=== PATIENT | female | born 1925 | race Caucasian/White ===

== ENCOUNTER 2016-11-21 13:05 | Inpatient (IN) | payer MEDICARE, MEDICAID ==
[~2016-11-21] VITALS: Ht 160 cm; Wt 54.4 kg
[2016-11-21 15:31] LABS: *BILIRUBIN,URIN NEGATIVE (NEGATIVE); *BLOOD, URINE 1+ (NEGATIVE); *CLARITY,URINE CLOUDY (CLEAR); *COLOR,URINE YELLOW (YELLOW); *KETONES,URINE NEGATIVE (NEGATIVE); *PROTEIN,URINE 1+ (NEGATIVE); *UROBILINOGEN,URINE 0.2 E.U./dl (NORMAL); LEUKOCYTE ESTERASE ,URINE 3+ (NEGATIVE); NITRITE, URINE NEGATIVE (NEGATIVE); PH,URINE 7.5 (5.0-8.0); UGLUCOSE NEGATIVE (NEGATIVE)
[2016-11-21 15:39] LABS: BACTERIA,URINE MANY /HPF (NONE SEEN); SQUAMOUS EPITHELIAL CELL,UR FEW /HPF (NONE SEEN); WBC,URINE TNTC /HPF (0-3)
[2016-11-21] MEDS ORDERED: CEFTRIAXONE 1 G in IV DEXTROSE 5% 50 ML IV ONE (15:45)
--- NOTE | 2016-11-21 16:00 | NUR ---
hospital sandwich provided per pt request.
[2016-11-21] MEDS ORDERED: CEFTRIAXONE 1 G VIAL ONE (16:01)
--- NOTE | 2016-11-21 16:34 | NUR ---
pt transfered to floor in stable condition, the pt daughter was at bedside the whole er stay.pt uses walker to ambulate, pt is a fall risk.
[2016-11-21 16:45] VITALS: BP 134/71
--- NOTE | 2016-11-21 17:57 | NUR ---
ADMISSION PROTOCOL FOLLOWED, PT ORIENTED TO ROOM AND WAS EDUCATED ON USING CALL LIGHT TO USE RESTROOM, PT VERBALIZED UNDERSTANDING. PT WAS AMBULATED TO BATHROOM BUT TO MUCH PAIN AND UNSTEADY, BEDSIDE COMMODE WAS PLACED IN ROOM. CALLED FOR ADMISSION ORDERS, NO RETURN PHONE CALL AT THIS TIME, WILL TRY AGAIN.
[2016-11-21] MEDS ORDERED: ONDANSETRON HCL 4 MG TABLET PO PRN (18:45)
[2016-11-21] MEDS ORDERED: CEFTRIAXONE 1 G VIAL IV SCH (19:00)
[2016-11-21] MEDS: IV NS 1000 ML 1,000 ML IV PRN (20:05)
[2016-11-21 20:23] VITALS: BP_SYST 124; BP_SYST 134; BP_DIAS 53
[2016-11-21] MEDS: ACETAMINOPHEN 325 MG TABLET PO PRN (22:15)
[2016-11-21] MEDS: ZOLPIDEM 5 MG TABLET PO PRN (22:34)
[2016-11-22 04:41] VITALS: BP 119/63
--- NOTE | 2016-11-22 06:14 | NUR ---
PT SLEPT INTERMITTENTLY, IN NO ACUTE DISTRESS. PT IS CONFUSED, REPEATEDLY TRIES TO GET OUT OF BED WITHOUT ASKING FOR ASSISTANCE. CONSTANT EXPLANATION TO PATIENT REGARDING FALL RISK, SAFETY MEASURES AND TO ASK FOR ASSISTANCE WHEN NEEDED. PATIENT NEEDS CONSTANT REINFORCEMENT/REMINDERS. ASSISTED PATIENT WITH TOILETING NEEDS, KEPT CLEAN/DRY. IVF RUNNING, NO INFILTRATION NOTED. CALL LIGHT WITHIN REACH, BED ALARM ON, FREQUENT VISUAL CHECKS. WILL CONTINUE TO MONITOR.
[2016-11-22] MEDS ORDERED: Z GUARD REMEDY PASTE 57 GM TUBE TOP PRN (06:45)
[2016-11-22 08:15] LABS: BASOPHILS % (AUTO) 0.3 % (0.0-2.0); EOSINOPHILS # (AUTO) 0.2 K/uL (0.0-0.7); EOSINOPHILS % (AUTO) 2.8 % (0.0-7.0); HEMATOCRIT 32.4 % (37-47); HEMOGLOBIN 10.1 G/DL (12.0-16.0); LYMPHOCYTES # (AUTO) 1.3 K/UL (0.8-4.8); LYMPHOCYTES % (AUTO) 17.1 % (20.5-51.5); MEAN CORPUSCULAR HEMOGLOBIN 23.1 UUG (27.0-31.0); MEAN CORPUSCULAR HGB CONC 31 g/dL (32.0-37.0); MEAN CORPUSCULAR VOLUME 74.4 FL (81.0-99.0); MONOCYTES # (AUTO) 0.9 K/UL (0.1-1.30); MONOCYTES % (AUTO) 11.9 % (0.0-11.0); NEUTROPHILS # (AUTO) 5.2 K/UL (1.8-8.9); NEUTROPHILS % (AUTO) 67.9 % (38.5-71.5); PLATELET COUNT (AUTO) 248 K/UL (150-450); RED BLOOD CELL COUNT(AUTO) 4.35 MIL/UL (4.2-5.4); WHITE BLOOD COUNT (AUTO) 7.7 K/UL (4.0-11.2)
[2016-11-22 08:23] LABS: ALANINE AMINOTRANSFERASE 18 U/L (14-59); ALKALINE PHOSPHATASE 89 U/L (50-136); ASPARTATE AMINOTRANSFERASE 17 U/L (15-37); BILIRUBIN,TOTAL 0.3 mg/dL (0.2-1.0); CARBON DIOXIDE 29 mmol/L (21-32); CHLORIDE 106 mmol/L (98-107); CREATININE 0.8 mg/dL (0.6-1.3); GLUCOSE 92 mg/dL (74-106); PHOSPHOROUS 3.1 mg/dL (2.5-4.9); POTASSIUM 4.2 mmol/L (3.5-5.1); TOTAL PROTEIN, SERUM 6.7 g/dL (6.4-8.2); UREA NITROGEN, BLOOD 17 mg/dL (7-18)
[2016-11-22 10:34] LABS: EOSINOPHILS % (MANUAL) 3 % (0-8); LYMPHOCYTES % (MANUAL) 19 % (20-40); MONOCYTES % (MANUAL) 13 % (2-10); NEUTROPHILS % (MANUAL) 65 % (42-75)
[2016-11-22] MEDS: ACETAMINOPHEN 325 MG TABLET PO PRN (10:55)
[2016-11-22 11:43] VITALS: BP 134/63
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
[2016-11-22 16:03] VITALS: BP 115/54
[2016-11-22] MEDS ORDERED: QUETIAPINE FUMARATE 25 MG TABLET PO PRN ×2 (17:00→20:00)
[2016-11-22] MEDS: CEFTRIAXONE 1 G in IV DEXTROSE 5% 50 ML IV SCH (18:12)
[2016-11-22 19:00] VITALS: BP 122/92
--- NOTE | 2016-11-22 19:40 | NUR ---
PT RECEIVED IN BED, AWAKE. A/OX1. V/S STABLE. NO ACUTE DISTRESS NOTED. NO COMPLAINTS OF PAIN AT THIS TIME. REORIENTED PATIENT TO TIME AND PLACE. SAFETY MEASURES IMPLEMENTED. CALL LIGHT WITHIN REACH. WILL CONTINUE TO MONITOR.
[2016-11-22] MEDS: QUETIAPINE FUMARATE 25 MG TABLET PO SCH (20:38)
--- NOTE | 2016-11-23 05:57 | NUR ---
END OF SHIFT NOTES. PT SLEPT WELL THROUGHOUT SHIFT. V/S STABLE. NO ACUTE DISTRESS NOTED. NO COMPLAINT OF PAIN. IVF INFUSING. NEEDS ATTENDED. SAFETY MAINTAINED. CALL LIGHT WITHIN REACH.
[2016-11-23 06:26] VITALS: BP 141/65
[2016-11-23 06:58] LABS: ALANINE AMINOTRANSFERASE 20 U/L (14-59); ALKALINE PHOSPHATASE 84 U/L (50-136); ASPARTATE AMINOTRANSFERASE 18 U/L (15-37); BILIRUBIN,TOTAL 0.2 mg/dL (0.2-1.0); CARBON DIOXIDE 27 mmol/L (21-32); CHLORIDE 107 mmol/L (98-107); CREATININE 0.8 mg/dL (0.6-1.3); GLUCOSE 94 mg/dL (74-106); MAGNESIUM 2.1 mg/dL (1.8-2.4); PHOSPHOROUS 3.6 mg/dL (2.5-4.9); POTASSIUM 4.1 mmol/L (3.5-5.1); TOTAL PROTEIN, SERUM 6.5 g/dL (6.4-8.2); UREA NITROGEN, BLOOD 17 mg/dL (7-18)
[2016-11-23 06:59] LABS: THYROID STIMULATING HORMONE 2.224 mIU/mL (0.358-3.740)
[2016-11-23 07:07] LABS: BASOPHILS % (AUTO) 0.2 % (0.0-2.0); EOSINOPHILS # (AUTO) 0.3 K/uL (0.0-0.7); EOSINOPHILS % (AUTO) 4.4 % (0.0-7.0); HEMATOCRIT 31.9 % (37-47); HEMOGLOBIN 9.9 G/DL (12.0-16.0); LYMPHOCYTES # (AUTO) 1.5 K/UL (0.8-4.8); LYMPHOCYTES % (AUTO) 21.4 % (20.5-51.5); MEAN CORPUSCULAR HGB CONC 31 g/dL (32.0-37.0); MEAN CORPUSCULAR VOLUME 74.3 FL (81.0-99.0); MONOCYTES # (AUTO) 0.9 K/UL (0.1-1.30); MONOCYTES % (AUTO) 12.5 % (0.0-11.0); NEUTROPHILS # (AUTO) 4.3 K/UL (1.8-8.9); NEUTROPHILS % (AUTO) 61.5 % (38.5-71.5); PLATELET COUNT (AUTO) 246 K/UL (150-450); RED BLOOD CELL COUNT(AUTO) 4.29 MIL/UL (4.2-5.4)
[2016-11-23 09:48] LABS: BAND % (MANUAL) 1 % (0-10); EOSINOPHILS % (MANUAL) 4 % (0-8); LYMPHOCYTES % (MANUAL) 29 % (20-40); MONOCYTES % (MANUAL) 8 % (2-10); NEUTROPHILS % (MANUAL) 58 % (42-75)
[2016-11-23 11:55] VITALS: BP 113/57
[2016-11-23 16:09] VITALS: BP 120/59
[2016-11-23] MEDS: IV NS 1000 ML 1,000 ML IV PRN (16:55)
[2016-11-23] MEDS: CEFTRIAXONE 1 G in IV DEXTROSE 5% 50 ML IV SCH (16:55)
--- NOTE | 2016-11-23 19:20 | NUR ---
RECEIVED PATIENT IN RECLINING CHAIR, NO SOB NO CHEST PAIN NOTED, NO COMPLAIN OF PAIN AT THIS TIME, ASSISTED WITH TOILETING, KEPT CLEAN AND DRY. CONT TO MONITOR.
[2016-11-23 19:45] VITALS: BP 136/54
[2016-11-23] MEDS: QUETIAPINE FUMARATE 25 MG TABLET PO SCH (20:27)
[2016-11-24] MEDS: IV NS 1000 ML 1,000 ML IV PRN ×2 (04:01→18:01)
[2016-11-24 05:16] VITALS: BP 147/79
--- NOTE | 2016-11-24 06:51 | NUR ---
PATIENT SLEPT MOST OF THE NIGHT NO SOB NO CHEST PAIN, NO COMPLAIN OF PAIN , KEPT CLEAN DRY AND COMFORTABLE.
--- NOTE | 2016-11-24 08:05 | NUR ---
PATIENT WAS MEDICATED WITH SERROQUEL NOTED ATTEMPTS TO GET OUT OF BED UNATTENDED NEEDING FREQUENT REDIRECTION WILL OBSERVE.
--- NOTE | 2016-11-24 08:15 | NUR ---
RECEIVED PATIENT IN BED AWAKE ALERT COOPERATIVE BUT HARD OF HEARING FED SELF BREAKFAST WITH FAIR APPETITE REMAIN ON IVF ORDERED WITH NO S/S OF INFILTERATION ON SITE AT THIS TIME.NO S/S OF PAIN OR DISCOMFORTS AT THIS TIME.REMAIN ON ATB WITH NO ADVERSE OR ALLERGIC REACTIONS AT THIS TIME.WILL CONTINUE TO OBSERVE.
[2016-11-24 12:15] VITALS: BP 135/53
--- NOTE | 2016-11-24 14:00 | NUR ---
ASSISTED TO AND FROM THE BATHROOM WITH HER WALKER SHE IS CONTINENT AND INCONTINENT AT TIMES MORE ALERT AT THIS TIME AND WILL CONTINUE TO OBSERVE.
[2016-11-24] MEDS: CEFTRIAXONE 1 G in IV DEXTROSE 5% 50 ML IV SCH (15:16)
--- NOTE | 2016-11-24 15:44 | NUR ---
PATIENT COMPLAINED OF PAIN ON HER IV SITE LEFT WRIST REMOVED AND REINSERTED TO HER RIGHT FOREARM AND CONTINUED ON IV ANTIBIOTICS ORDERED WITH NO ADVERSE OR ALLERGIC REACTIONS AT THIS TIME.
[2016-11-24 16:05] VITALS: BP 130/58
--- NOTE | 2016-11-24 18:00 | NUR ---
PATIENTS DAUGHTER IS AT THE BEDSIDE VISITING DENIES PAIN OR DISCOMFORTS AT THIS TIME.IVF REMAINS IN PROGRESS ORDERED.WILL CONTINUE TO OBSERVE.
--- NOTE | 2016-11-24 19:30 | NUR ---
RECEIVED PATIENT LAYING IN BED COMFORTABLY. HOB ELEVATED. ALERT TO SELF ONLY. SAFETY INITIATED. CALL LIGHT WITHIN REACH.
[2016-11-24 20:00] VITALS: BP 129/56
[2016-11-24] MEDS: QUETIAPINE FUMARATE 25 MG TABLET PO SCH ×2 (20:27→20:29)
[2016-11-24] MEDS: ZOLPIDEM 5 MG TABLET PO PRN (21:13)
[2016-11-25] MEDS: ACETAMINOPHEN 325 MG TABLET PO PRN (03:04)
--- NOTE | 2016-11-25 07:06 | NUR ---
NO CHANGES NOTED T/O SHIFT. NO ACUTE DISTRESS NOTED. ALL SAFETY AND COMFORT MEASURES MAINTAINED T/O SHIFT. CALL LIGHT WITHIN REACH. ALL NEEDS MET.
--- NOTE | 2016-11-25 08:09 | NUR ---
PATIENT IS AWAKE ALERT TO SELF BUT IS DIORIENTED AT THIS TIME STATED THAT SHE WANTS TO TALK TO SOMEONE XENIA AND WHEN ASKED ABOUT WHAT STATED ABOUT HER CHILDREN BUT DID NOT PROVIDE DETAILS AT THIS TIME.
[2016-11-25 11:11] VITALS: BP 127/66
[2016-11-25] MEDS ORDERED: ZOLP5TAB8 PO (11:42)
[2016-11-25] MEDS ORDERED: MENT71OI TOP (11:42)
[2016-11-25] MEDS ORDERED: QUET25TA PO ×2 (11:42)
--- NOTE | 2016-11-25 11:45 | NUR ---
ORDER TO DISCHARGE PATIENT TO [facility] RECEIVED AND NOTED WILL WAIT FOR THE STRUCTURAL STEEL TRADES WORKER/LENS MATCHER TO MAKE CONTACT WITH THE RECEIVING FACILITY BEFORE SENDING THE PATIENT.
--- NOTE | 2016-11-25 11:56 | NUR ---
DR VELAZCO NOTIFIED THAT PATIENT HAS RESHES ON THE LEFT BACK AREA AND HE DID SEE IT WITH ORDERS TO START HYDROCORTISONE CREAM AND NOTED.
[2016-11-25] MEDS ORDERED: HYDROCORTISONE 1% CREAM 30 GM TUBE TP SCH (12:00)
--- NOTE | 2016-11-25 14:45 | NUR ---
CALLED [facility] AND SPOKE WITH JOHN AND REPORT GIVEN TO HER FOR CONTINUING CARE.
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
[2016-11-25 15:23] VITALS: BP 138/68
--- NOTE | 2016-11-25 15:53 | NUR ---
PATIENT DISCHARGED PICKED UP BY THE [facility] IN SATISFACTORY CONDITION WITH HER WALKER JERRY AND 2 PURSES.
== END 2016-11-25 15:54 | DRG 871 ==
LOC: ER 13:05 → MED 16:29
PROVIDERS: ADMIT Internal Medicine; ATTEND Internal Medicine
DX: A41.9 Sepsis, unspecified organism (principal); G93.40 Encephalopathy, unspecified; N39.0 Urinary tract infection, site not specified; F03.90 Unspecified dementia, unspecified severity, without behavioral disturbance, psychotic disturbance, mood disturbance, and anxiety; Z88.0 Allergy status to penicillin; W01.0XXA Fall on same level from slipping, tripping and stumbling without subsequent striking against object, initial encounter; Y92.9 Unspecified place or not applicable; F39 Unspecified mood [affective] disorder; F22 Delusional disorders
CPT/HCPCS: 36415; 70450; 73502; 73551; 73590; 73620; 82746; 83735; 84100; 84443; 85025; 86592; 87077; 87086; 97116; 97161; 97530; A4663; J0696; J3490; J7030; J7040; J7060